=== PATIENT | female | born 1975 | race Caucasian/White ===

== ENCOUNTER → 2022-04-09 | Outpatient (CLI) | payer BC ==
--- NOTE | 2022-04-12 13:09 | RAD ---
EXAM: BILATERAL DIGITAL SCREENING MAMMOGRAPHY. HISTORY: Routine mammographic screening. TECHNIQUE: Bilateral full field digital images were obtained in CC and MLO projections. Computer-aide d detection was applied. COMPARISON: None available. This is interpreted as a baseline study. COMPOSITION: C. The breasts are heterogeneously dense, which may obscure small masses. FINDINGS: A nodule was suggested architectural distortion is noted superiorly on the right. This may correlate with medial or lateral foci on the CC projection. See annotations. An asymmetric parenchyma island is noted very superiorly on the left MLO projection. Another suggesti ve suspect layered nodule at the nipple line on the CC view likely corresponds with dense foci superi chidi on the MLO projection. See annotations. BI-RADS CATEGORY 0: Incomplete--Needs Additional Imaging Evaluation. RECOMMENDATION: 1. Spot compression of multiple nodular regions of architectural distortion bilaterally. See annotati ons. Sonography if necessary. Electronically signed by: Maty Spring MD (04/12/2022 1:07 PM) [id number]
== END ==
LOC: MAMMO 12:51
PROVIDERS: ATTEND Physician Assistant Medical
DX: Z12.31 Encounter for screening mammogram for malignant neoplasm of breast (principal)
CPT/HCPCS: 77067